=== PATIENT | female | born 1985 | race Caucasian/White ===

== ENCOUNTER 2021-11-28 15:14 | Emergency (ER) | payer OTHER, SELFPAY ==
[2021-11-28] MEDS ORDERED: Acetaminophen 500 MG TAB ONE (16:24)
== END 2021-11-28 17:02 | disposition home or self-care (01) ==
LOC: CSHERS 15:14
DX: S09.90XA Unspecified injury of head, initial encounter (principal); S80.812A Abrasion, left lower leg, initial encounter; W11.XXXA Fall on and from ladder, initial encounter
CPT/HCPCS: 70450; 72125

== ENCOUNTER 2025-02-27 04:11 | Emergency (ER) | payer OTHER ==
[2025-02-27 04:35] LABS: Glucose, Urine (Dipstick) Normal (Negative); Leukocyte 500 (Negative); Protein, Urine (Dipstick) 500 mg/dl (Neg-Trace); Specific Gravity, Urine 1.025 (1.005-1.030)
[2025-02-27 04:37] LABS: Pregnancy Test - Urine (BHCG) Negative (Negative); Pregu Control Background? CLEAR/WHITE (CLR/WHITE); Pregu Control Bar Appear? YES (CONTROL BAR)
[2025-02-27 04:43] LABS: Bacteria/HPF 1+ HPF (None Seen); CAUTI Indications for Culture Dysuria,urgency,freq; RBC/HPF Greater than 50 HPF (0-3); WBC/HPF Greater than 50 HPF (0-3)
[2025-02-27 04:45] LABS: Urine Culture Reflex Yes Yes
[2025-02-27] MEDS ORDERED: Ibuprofen 200 MG TAB ONE (04:49)
== END 2025-02-27 05:00 | disposition home or self-care (01) ==
LOC: CSHERS 04:11
DX: N39.0 Urinary tract infection, site not specified (principal)
CPT/HCPCS: 81001; 81025; 87077; 87086; 87186; 99284